=== PATIENT | male | born 1940 | race Caucasian/White ===

== ENCOUNTER → 2020-03-17 | Emergency (ER) | payer MEDICARE ==
[2020-03-17 05:56] LABS: #Basophils 0.1 thou/uL (0.0-0.2); #Eosinphils 0.1 thou/uL (0.0-0.7); #Lymphocytes 1.2 thou/uL (1.20-3.40); #Monocytes 0.6 thou/uL (0.11-0.59); #Neutrophils 3.5 thou/uL (1.40-6.50); %Basophils 1.1 % (0.0-1.0); %Eosinophils 1.9 % (0.0-10.0); %Lymphocytes 21.3 % (21.0-51.0); %Monocytes 11.7 % (0.0-10.0); Hemoglobin 13.3 g/dL (14.0-18.0); Mean Corpuscular HGB CONC 34.2 g/dL (32.0-36.0); Mean Corpuscular Hemoglobin 32.5 pg (27.0-31.0); Mean Corpuscular Volume 95.1 fL (78.0-98.0); Mean Platelet Volume 5.3 fL (7.4-10.4); Platelet Count 314 thou/uL (130-400); RBC Distribution Width 10.2 % (11.5-14.5); White Blood Cell (WBC) Count 5.5 thou/uL (4.8-10.8)
[2020-03-17 06:01] LABS: INR-International Normal Ratio 1.1; PTT 29.9 SEC (22.9-36.1)
[2020-03-17 06:10] LABS: ALT (SGPT) 17 U/L (8-55); AST (SGOT) 27 U/L (5-34); Albumin 4.5 g/dL (3.4-4.8); Alkaline Phosphatase 79 U/L (40-110); Anion Gap 16 mmol/L (10-20); BUN (Urea Nitrogen) 5 mg/dL (8.4-25.7); Bilirubin, Total 0.9 mg/dL (0.2-1.2); Calc. Creatinine Clearance 0 mL/min (70-130); Calcium 9.8 mg/dL (7.8-10.44); Carbon Dioxide 27 mmol/L (23-31); Chloride 89 mmol/L (98-107); Estimated GFR-MDRD Greater than 90; Globulin 3.2 g/dL (2.4-3.5); Glucose 111 mg/dL (83-110); Potassium 4.1 mmol/L (3.5-5.1); Protein, Total 7.7 g/dL (5.8-8.1); Sodium 128 mmol/L (136-145)
[2020-03-17 06:17] LABS: Bicarbonate (HCO3v) 30.5 mmol/L (22.0-28.0); CO2 Tension (PvCO2) 52.4 mmHg (40.0-50.0); Calcium, Ionized 1.16 mmol/L (See Comments:); Chloride 87 mmol/L (98-107); Hemoglobin - Calc 13.3 g/dL (14.0-18.0); Potassium 3.9 mmol/L (3.5-5.1); Sodium 125 mmol/L (138-145); T. Carbon Dioxide 32.1 mmol/L (22.0-28.0); vO2 Saturation-calc 53.4 % (60.0-85.0)
--- NOTE | 2020-03-17 07:22 | RAD ---
PORTABLE CHEST: Date: 03/17/2020 An AP portable film at 0557 hours is compared with a 10/29/2003 study. The heart remains normal in size and the lungs are clear. No acute infiltrate or effusion seen. Clips are noted, particularly over the right lung apex. IMPRESSION: No acute thoracic findings. POS: HOME
--- NOTE | 2020-03-17 07:31 | CT ---
PRELIMINARY REPORT/[facility]/EMERGENCY AFTER HOURS PROCEDURE: PROCEDURE: CT Head without Contrast . HISTORY: Weakness and trouble walking with lightheadedness. TECHNIQUE: Axial images were performed without the administration of IV contrast with or without mult iplanar reformations . COMPARISON: None . FINDINGS: Brain shows no mass, hemorrhage, or acute stroke. Moderately severe periventricular old microischemic changes. Mild diffuse cerebral and cerebellar at rophy. Ventricles are normal size for patient's age. No acute skull or scalp abnormality. Visualized sinuses show scattered mild inflammatory mucosal changes. Clear mastoids. IMPRESSION: No acute intracranial abnormality. Senescent changes . ELECTRONICALLY SIGNED BY: Rao Farnsworth MD March 17, 2020 6:13:59 AM CDT This report is intended for review by the ordering physician only, in accordance of law. If you recei ve this report in error, please call [facility] at [phone]. FINAL REPORT CT OF THE BRAIN WITHOUT CONTRAST: Date: 03/17/[address] was done following trauma. There is some diffuse atrophy with mild compensatory dila tation of the ventricles. Patchy deep white matter lucency is seen throughout consistent with chronic microvascular ischemia. No acute stroke was seen, but small acute strokes would be missed against th is background. There is no sign of parenchymal hemorrhage or extra-axial hematoma. Incidentally noted were some areas of mucosal thickening in the ethmoid sinuses. IMPRESSION: Atrophy and chronic ischemic changes, but no acute traumatic findings. Report in agreement with preliminary report by [facility]. POS: HOME
== END ==
LOC: BURERS 05:11
DX: R13.10 Dysphagia, unspecified (principal); S05.11XA Contusion of eyeball and orbital tissues, right eye, initial encounter; C10.9 Malignant neoplasm of oropharynx, unspecified; E87.8 Other disorders of electrolyte and fluid balance, not elsewhere classified; E87.1 Hypo-osmolality and hyponatremia; Z79.899 Other long term (current) drug therapy; Z85.01 Personal history of malignant neoplasm of esophagus; W18.30XA Fall on same level, unspecified, initial encounter
CPT/HCPCS: 70450; 71045; 80053; 82330; 82803; 83880; 84484; 85014; 85025; 85610; 85730; 93005

== ENCOUNTER 2020-03-26 08:41 | Emergency (ER) | payer MEDICARE ==
[2020-03-26 09:23] LABS: #Basophils 0.1 thou/uL (0.0-0.2); #Eosinphils 0.3 thou/uL (0.0-0.7); #Monocytes 0.6 thou/uL (0.11-0.59); #Neutrophils 5.2 thou/uL (1.40-6.50); %Basophils 1.1 % (0.0-1.0); %Eosinophils 4.1 % (0.0-10.0); %Lymphocytes 13.6 % (21.0-51.0); %Monocytes 8.2 % (0.0-10.0); %Neutrophils 72.9 % (42.0-75.0); Hemoglobin 12.6 g/dL (14.0-18.0); Mean Corpuscular HGB CONC 32.9 g/dL (32.0-36.0); Mean Corpuscular Hemoglobin 32.9 pg (27.0-31.0); Mean Platelet Volume 6.8 fL (7.4-10.4); Platelet Count 231 thou/uL (130-400); RBC Distribution Width 10.9 % (11.5-14.5); Red Blood Cell (RBC) Count 3.83 mill/uL (4.70-6.10); White Blood Cell (WBC) Count 7.1 thou/uL (4.8-10.8)
[2020-03-26 11:08] LABS: CK (CPK) 38 U/L (30-200)
[2020-03-26 11:42] LABS: Anion Gap 15 mmol/L (10-20); Carbon Dioxide 29 mmol/L (23-31); Chloride 97 mmol/L (98-107); Potassium 4.1 mmol/L (3.5-5.1); Sodium 137 mmol/L (136-145)
[2020-03-26 11:43] LABS: BUN (Urea Nitrogen) 25 mg/dL (8.4-25.7); Bilirubin, Total 0.4 mg/dL (0.2-1.2); Calc. Creatinine Clearance 0 mL/min (70-130); Calcium 10.1 mg/dL (7.8-10.44); Estimated GFR-MDRD Greater than 90; Glucose 127 mg/dL (83-110)
[2020-03-26 11:44] LABS: Globulin 3.7 g/dL (2.4-3.5); Protein, Total 7.7 g/dL (5.8-8.1)
[2020-03-26 11:45] LABS: ALT (SGPT) 30 U/L (8-55); AST (SGOT) 20 U/L (5-34); Alkaline Phosphatase 86 U/L (40-110)
[2020-03-26 12:01] LABS: Bilirubin Negative (Negative); Blood, Urine Negative (Negative); Clarity Slightly Cloudy (Clear); Glucose, Urine (Dipstick) Negative (Negative); Leukocyte Negative (Negative); Nitrite Negative (Negative); Protein, Urine (Dipstick) Negative (Neg-Trace); Urobilinogen 0.2 mg/dL (Less than 2)
--- NOTE | 2020-03-26 19:53 | RAD ---
PORTABLE CHEST: 03/26/20 An AP portable film at 0948 is compared with a 03/17/20 study. The heart is normal in size. The lungs are clear. There does appear to be some free air beneath the right hemidiaphragm. This should be inve stigated further. IMPRESSION: 1. No acute thoracic changes. 2. Suspicion of free air beneath the right hemidiaphragm. Preliminary report called to Mickey in ER at 0956 on 03/26/2020. NOTE: Subsequent follow up with Dr Hardwick reveals that this patient just had a PEG tube placed and did not have current abdominal symptoms of concern. POS: HOME
--- NOTE | 2020-03-26 20:02 | CT ---
CT OF THE BRAIN WITHOUT CONTRAST: 03/26/[address] was compared with the prior exam of 03/17/2020. No intracranial bleeding, mass, or edema was seen. Deep white matter lucency is consistent with [place] ana microvascular ischemia. The changes are profound throughout, so a small acute stroke would be mis sed. The exam does not appear much different than the prior study, however. The ventricular sizes are stable. The skull appears intact. The visible paranasal sinuses are clear. IMPRESSION: Chronic ischemic changes, but no acute intracranial findings. Preliminary report called to Mickey in ER at 0950 on 03/26/2020. POS: HOME
== END 2020-03-26 13:50 | disposition home or self-care (01) ==
LOC: BURERS 08:41
DX: E86.0 Dehydration (principal); Z93.1 Gastrostomy status
CPT/HCPCS: 70450; 71045; 80053; 81003; 82550; 84484; 85025; 93005; 96360

== ENCOUNTER 2020-04-01 02:28 | Emergency (ER) | payer MEDICARE | END 2020-04-01 03:15 | disposition home or self-care (01) | LOC: BURERS 02:28 | DX: R09.89 Other specified symptoms and signs involving the circulatory and respiratory systems (principal) | CPT/HCPCS: 99283 ==

== ENCOUNTER 2020-04-03 06:32 | Emergency (ER) | payer MEDICARE ==
[2020-04-03 07:39] LABS: #Basophils 0.1 thou/uL (0.0-0.2); #Eosinphils 0.3 thou/uL (0.0-0.7); #Lymphocytes 1.4 thou/uL (1.20-3.40); #Monocytes 0.6 thou/uL (0.11-0.59); #Neutrophils 6.1 thou/uL (1.40-6.50); %Basophils 1.1 % (0.0-1.0); %Eosinophils 3.5 % (0.0-10.0); %Lymphocytes 16.6 % (21.0-51.0); %Monocytes 7.5 % (0.0-10.0); %Neutrophils 71.5 % (42.0-75.0); Hemoglobin 12.7 g/dL (14.0-18.0); Mean Corpuscular HGB CONC 32.3 g/dL (32.0-36.0); Mean Corpuscular Hemoglobin 32.1 pg (27.0-31.0); Mean Corpuscular Volume 99.3 fL (78.0-98.0); Mean Platelet Volume 5.6 fL (7.4-10.4); Platelet Count 423 thou/uL (130-400); RBC Distribution Width 11.3 % (11.5-14.5); Red Blood Cell (RBC) Count 3.96 mill/uL (4.70-6.10); White Blood Cell (WBC) Count 8.6 thou/uL (4.8-10.8)
[2020-04-03 07:51] LABS: ALT (SGPT) 21 U/L (8-55); AST (SGOT) 18 U/L (5-34); Albumin 4.2 g/dL (3.4-4.8); Alkaline Phosphatase 73 U/L (40-110); Anion Gap 16 mmol/L (10-20); BUN (Urea Nitrogen) 17 mg/dL (8.4-25.7); Bilirubin, Total 0.3 mg/dL (0.2-1.2); Calc. Creatinine Clearance 0 mL/min (70-130); Calcium 10.5 mg/dL (7.8-10.44); Carbon Dioxide 30 mmol/L (23-31); Chloride 97 mmol/L (98-107); Estimated GFR-MDRD Greater than 90; Globulin 3.5 g/dL (2.4-3.5); Glucose 118 mg/dL (83-110); Potassium 4.6 mmol/L (3.5-5.1); Protein, Total 7.7 g/dL (5.8-8.1); Sodium 138 mmol/L (136-145)
== END 2020-04-03 08:04 | disposition home or self-care (01) ==
LOC: BURERS 06:32
DX: R13.10 Dysphagia, unspecified (principal); Z85.01 Personal history of malignant neoplasm of esophagus; Z93.1 Gastrostomy status
CPT/HCPCS: 80053; 85025; 99284

== ENCOUNTER 2020-04-19 14:29 | Emergency (ER) | payer MEDICARE | END 2020-04-19 16:30 | disposition left against medical advice (07) | LOC: BURERS 14:29 | DX: Z53.21 Procedure and treatment not carried out due to patient leaving prior to being seen by health care provider (principal) ==

== ENCOUNTER 2020-05-09 13:31 | Emergency (ER) | payer MEDICARE ==
[2020-05-09 14:28] LABS: #Eosinphils 0.1 thou/uL (0.0-0.7); #Lymphocytes 1.1 thou/uL (1.20-3.40); #Monocytes 0.4 thou/uL (0.11-0.59); #Neutrophils 2.8 thou/uL (1.40-6.50); %Basophils 0.8 % (0.0-1.0); %Eosinophils 1.6 % (0.0-10.0); %Lymphocytes 25.1 % (21.0-51.0); %Monocytes 9.2 % (0.0-10.0); %Neutrophils 63.3 % (42.0-75.0); Hemoglobin 12.4 g/dL (14.0-18.0); Mean Corpuscular HGB CONC 31.5 g/dL (32.0-36.0); Mean Corpuscular Hemoglobin 31.5 pg (27.0-31.0); Mean Corpuscular Volume 99.8 fL (78.0-98.0); Mean Platelet Volume 5.7 fL (7.4-10.4); Platelet Count 236 thou/uL (130-400); Red Blood Cell (RBC) Count 3.95 mill/uL (4.70-6.10); White Blood Cell (WBC) Count 4.4 thou/uL (4.8-10.8)
[2020-05-09 14:42] LABS: Bilirubin Negative (Negative); Blood, Urine Negative (Negative); Clarity Clear (Clear); Glucose, Urine (Dipstick) Negative (Negative); Ketone, Urine Negative (Negative); Leukocyte Negative (Negative); Nitrite Negative (Negative); Protein, Urine (Dipstick) Negative (Neg-Trace); Specific Gravity, Urine 1.015 (1.005-1.030); Urobilinogen 0.2 mg/dL (Less than 2)
[2020-05-09 14:46] LABS: ALT (SGPT) 18 U/L (8-55); AST (SGOT) 21 U/L (5-34); Albumin 3.9 g/dL (3.4-4.8); Alkaline Phosphatase 69 U/L (40-110); Anion Gap 13 mmol/L (10-20); BUN (Urea Nitrogen) 10 mg/dL (8.4-25.7); Bilirubin, Total 0.4 mg/dL (0.2-1.2); Calc. Creatinine Clearance 0 mL/min (70-130); Calcium 9.6 mg/dL (7.8-10.44); Carbon Dioxide 29 mmol/L (23-31); Chloride 101 mmol/L (98-107); Estimated GFR-MDRD 88; Globulin 3.4 g/dL (2.4-3.5); Glucose 111 mg/dL (83-110); Lipase 24 U/L (8-78); Potassium 4.1 mmol/L (3.5-5.1); Protein, Total 7.3 g/dL (5.8-8.1); Sodium 139 mmol/L (136-145)
== END 2020-05-09 15:50 | disposition home or self-care (01) ==
LOC: BURERS 13:31
DX: R13.10 Dysphagia, unspecified (principal); D64.9 Anemia, unspecified; R64 Cachexia
CPT/HCPCS: 36415; 80053; 81003; 83690; 84484; 85025; 96360

== ENCOUNTER 2020-05-12 04:18 | Emergency (ER) | payer MEDICARE, OTHER ==
[2020-05-12 04:59] LABS: #Basophils 0.1 thou/uL (0.0-0.2); #Eosinphils 0.1 thou/uL (0.0-0.7); #Lymphocytes 1.7 thou/uL (1.20-3.40); #Monocytes 0.5 thou/uL (0.11-0.59); #Neutrophils 3.3 thou/uL (1.40-6.50); %Basophils 1.1 % (0.0-1.0); %Eosinophils 2.2 % (0.0-10.0); %Lymphocytes 29.8 % (21.0-51.0); Hemoglobin 11.6 g/dL (14.0-18.0); Mean Corpuscular HGB CONC 32.7 g/dL (32.0-36.0); Mean Corpuscular Hemoglobin 32.3 pg (27.0-31.0); Mean Corpuscular Volume 98.9 fL (78.0-98.0); Mean Platelet Volume 6.2 fL (7.4-10.4); Platelet Count 208 thou/uL (130-400); RBC Distribution Width 11.2 % (11.5-14.5); Red Blood Cell (RBC) Count 3.58 mill/uL (4.70-6.10); White Blood Cell (WBC) Count 5.6 thou/uL (4.8-10.8)
[2020-05-12 05:04] LABS: ALT (SGPT) 12 U/L (8-55); AST (SGOT) 16 U/L (5-34); Albumin 3.7 g/dL (3.4-4.8); Alkaline Phosphatase 68 U/L (40-110); Anion Gap 14 mmol/L (10-20); BUN (Urea Nitrogen) 11 mg/dL (8.4-25.7); Bilirubin, Total 0.5 mg/dL (0.2-1.2); Calc. Creatinine Clearance 0 mL/min (70-130); Calcium 9.5 mg/dL (7.8-10.44); Carbon Dioxide 25 mmol/L (23-31); Chloride 103 mmol/L (98-107); Estimated GFR-MDRD 87; Globulin 3.1 g/dL (2.4-3.5); Glucose 100 mg/dL (83-110); Protein, Total 6.8 g/dL (5.8-8.1); Sodium 138 mmol/L (136-145)
[2020-05-12 05:59] LABS: Bilirubin Negative (Negative); Blood, Urine Negative (Negative); Clarity Clear (Clear); Glucose, Urine (Dipstick) Negative (Negative); Ketone, Urine Negative (Negative); Leukocyte Trace (Negative); Nitrite Negative (Negative); Protein, Urine (Dipstick) Negative (Neg-Trace); Urobilinogen 0.2 mg/dL (Less than 2)
[2020-05-12 06:05] LABS: Bacteria/HPF 1+ HPF (None Seen); Squamous Epithelial 0-3 HPF (0-3)
[2020-05-12 06:09] LABS: Amphetamine Not Detected (NotDetected); Barbiturates Screen Not Detected (NotDetected); Benzodiazepine Screen Not Detected (NotDetected); Cocaine Metabolite Screen Not Detected (NotDetected); Medtox Control Line Valid? VALID (VALID); Methadone Not Detected (NotDetected); Methamphetamine Not Detected (NotDetected); Opiate Screen Not Detected (NotDetected); Oxycodone Screen Not Detected (NotDetected); Phencyclidine (PCP) Not Detected (NotDetected); THC/Cannabinoid Screen Not Detected (NotDetected); Tricyclic Screen Detected (NotDetected)
[2020-05-12] MEDS ORDERED: cefTRIAXone\\ROCEPHIN 1 GM VIAL ONE (06:29)
[2020-05-12] MEDS ORDERED: Sodium Chloride 0.9% 100 ML ONE ×2 (06:29→06:32)
--- NOTE | 2020-05-12 07:38 | CT ---
PRELIMINARY REPORT/[facility]/EMERGENCY AFTER HOURS PROCEDURE: EXAM: CT Head Without Intravenous Contrast. CLINICAL HISTORY: AMS PER EMS PT. BACAME COMBATIVE TECHNIQUE: Axial computed tomography images of the head/brain without intravenous contrast. COMPARISON: CT\SR - CT BRAIN WO CON - 03/26/2020 09:[address] - CT BRAIN WO CON - 03/17/2020 05:52 AM CDT FINDINGS: BRAIN: No acute intraparenchymal hemorrhage. No mass lesion. No CT evidence for acute territorial infarct. N o midline shift or extra-axial collection. Hypodensity of the white matter is nonspecific but may represent chronic microvascular ischemic disea se among other etiologies. VENTRICLES: No hydrocephalus. Volume loss. ORBITS: The orbits are unremarkable. SINUSES AND MASTOIDS: The paranasal sinuses and mastoid air cells are clear. SOFT TISSUES: No significant facial or scalp soft tissue swelling evident. No radiopaque foreign body is seen. BONES: No acute skull fracture. IMPRESSION: Chronic parenchymal changes. No acute intracranial abnormality. ELECTRONICALLY SIGNED BY: Laura Alberto MD May 12, 2020 5:35:21 AM CDT This report is intended for review by the ordering physician only, in accordance of law. If you recei ve this report in error, please call [facility] at [phone]. FINAL REPORT CT OF THE BRAIN WITHOUT CONTRAST: DATE: 05/12/[address] of head was performed for evaluation of mental status changes. Comparison made with the pr ior study of 03/26/2020. There have been no significant interval changes. The ventricles are normal in size for age and atroph y. Patchy hypolucency throughout the deep white matter is consistent with chronic ischemic change. Th ere was no sign of acute stroke, however, small acute events would be missed against this background. MRI would be more sensitive to such. There is no intracranial bleeding, mass, or gross edema. The sk ull appears normal, as do the visible paranasal sinuses. IMPRESSION: Atrophy and chronic ischemic changes, little different than the February study. Report in agreement with preliminary reading by [facility]. POS: HOME
== END 2020-05-12 07:41 | disposition home or self-care (01) ==
LOC: BURERS 04:18
DX: N39.0 Urinary tract infection, site not specified (principal); R13.10 Dysphagia, unspecified
CPT/HCPCS: 36416; 70450; 80053; 80306; 81003; 81015; 83605; 84443; 84484; 85025; 87086; 93005; 96374; J0696; J3490

== ENCOUNTER 2020-05-16 07:19 | Emergency (ER) | payer MEDICARE, OTHER | END 2020-05-16 09:45 | disposition home or self-care (01) | LOC: BURERS 07:19 | DX: K94.23 Gastrostomy malfunction (principal) | CPT/HCPCS: 99282 ==